=== PATIENT | male | born 1950 | race Caucasian/White ===

== ENCOUNTER → 2017-07-09 | Outpatient (CLI) | payer MEDICARE, BC ==
[~2017-07-09] MED LIST: LIDOCAINE 1%, 20ML ONE; OMNIPAQUE 300 MG/ML, 10ML VIAL ONE; ROPivacaine/PF 0.2%, 10 ML ONE; TRIAMCINOLONE ACETONIDE 40 MG/ML, 1ML ONE
== END | disposition home or self-care (01) ==
LOC: RAD 08:13
PROVIDERS: ATTEND Nurse Practitioner
DX: M20.11 Hallux valgus (acquired), right foot (principal); M19.071 Primary osteoarthritis, right ankle and foot
CPT/HCPCS: 20605; 77002; J2795; J3301; J3490; Q9967

== ENCOUNTER → 2017-11-12 | Outpatient (CLI) | payer MEDICARE, BC ==
[~2017-11-12] MED LIST changes: -OMNIPAQUE 300 MG/ML, 10ML VIAL ONE; +ROPIvacaine/PF 0.2%, 20 ML ONE; -ROPivacaine/PF 0.2%, 10 ML ONE
== END | disposition home or self-care (01) ==
LOC: CFH 14:04
PROVIDERS: ATTEND Nurse Practitioner
DX: M20.11 Hallux valgus (acquired), right foot (principal); M19.071 Primary osteoarthritis, right ankle and foot
CPT/HCPCS: 20600; 20610; 77002; J2795; J3301; J3490; 20605

== ENCOUNTER → 2018-03-17 | Outpatient (CLI) | payer MEDICARE, BC ==
[~2018-03-17] MED LIST changes: +BUPIVACAINE/PF 0.5% ONE; -LIDOCAINE 1%, 20ML ONE; +LIDOCAINE-MPF 1%, 2ML ONE; +OMNIPAQUE 300 MG/ML, 10ML VIAL ONE; -ROPIvacaine/PF 0.2%, 20 ML ONE
== END | disposition home or self-care (01) ==
LOC: RAD 08:58
PROVIDERS: ATTEND Nurse Practitioner
DX: M19.071 Primary osteoarthritis, right ankle and foot (principal); Z79.899 Other long term (current) drug therapy
CPT/HCPCS: 27648; 77002; J3301; J3490; Q9967

== ENCOUNTER 2018-08-14 08:35 | Outpatient (CLI) | payer MEDICARE, BC ==
[2018-08-14] MEDS ORDERED: ROPivacaine/PF 0.2%, 10 ML ONE (08:36)
[2018-08-14] MEDS ORDERED: LIDOCAINE-MPF 1%, 5ML ONE (08:37)
[2018-08-14] MEDS ORDERED: BUPIVACAINE/PF 0.5% ONE (08:37)
[2018-08-14] MEDS ORDERED: TRIAMCINOLONE ACETONIDE 40 MG/ML, 1ML ONE (08:38)
[2018-08-14] MEDS ORDERED: OMNIPAQUE 300 MG/ML, 10ML VIAL ONE (09:00)
== END 2018-08-14 23:59 | disposition home or self-care (01) ==
LOC: RAD 08:35
PROVIDERS: ATTEND Nurse Practitioner
DX: M19.071 Primary osteoarthritis, right ankle and foot (principal)
CPT/HCPCS: 20605; 77002; J2795; J3301; J3490; Q9967

== ENCOUNTER → 2018-12-08 | Outpatient (CLI) | payer MEDICARE, BC ==
[~2018-12-08] MED LIST changes: -BUPIVACAINE/PF 0.5% ONE; -LIDOCAINE-MPF 1%, 2ML ONE; +LIDOCAINE-MPF 1%, 5ML ONE; -OMNIPAQUE 300 MG/ML, 10ML VIAL ONE; +ROPivacaine/PF 0.2%, 10 ML ONE
== END | disposition home or self-care (01) ==
LOC: CFH 08:24
PROVIDERS: ATTEND Nurse Practitioner
DX: M20.11 Hallux valgus (acquired), right foot (principal); M25.571 Pain in right ankle and joints of right foot; M19.071 Primary osteoarthritis, right ankle and foot
CPT/HCPCS: 20600; 77002; J2795; J3301

== ENCOUNTER 2019-03-05 08:44 | Outpatient (CLI) | payer MEDICARE, BC ==
[2019-03-05] MEDS ORDERED: TRIAMCINOLONE ACETONIDE 40 MG/ML, 1ML ONE (08:57)
[2019-03-05] MEDS ORDERED: LIDOCAINE-MPF 1%, 5ML ONE (08:57)
[2019-03-05] MEDS ORDERED: ROPivacaine/PF 0.2%, 10 ML ONE (08:57)
== END 2019-03-05 23:59 | disposition home or self-care (01) ==
LOC: RAD 08:44
PROVIDERS: ATTEND Nurse Practitioner
DX: M20.11 Hallux valgus (acquired), right foot (principal)
CPT/HCPCS: 20600; 77002; J2795; J3301

== ENCOUNTER 2019-05-19 09:03 | Outpatient (CLI) | payer MEDICARE, BC ==
[2019-05-19] MEDS ORDERED: LIDOCAINE-MPF 1%, 5ML ONE (09:11)
[2019-05-19] MEDS ORDERED: ROPivacaine/PF 0.2%, 10 ML ONE ×2 (09:11)
[2019-05-19] MEDS ORDERED: TRIAMCINOLONE ACETONIDE 40 MG/ML, 1ML ONE (09:12)
== END 2019-05-19 23:59 | disposition home or self-care (01) ==
LOC: RAD 09:03
PROVIDERS: ATTEND Nurse Practitioner
DX: M21.071 Valgus deformity, not elsewhere classified, right ankle (principal); M72.2 Plantar fascial fibromatosis
CPT/HCPCS: 20600; 77002; J2795; J3301

== ENCOUNTER 2019-08-20 08:31 | Outpatient (CLI) | payer MEDICARE, BC ==
[2019-08-20] MEDS ORDERED: ROPivacaine/PF 0.2%, 10 ML ONE (09:00)
[2019-08-20] MEDS ORDERED: LIDOCAINE-MPF 1%, 5ML ONE (09:00)
[2019-08-20] MEDS ORDERED: TRIAMCINOLONE ACETONIDE 40 MG/ML, 1ML ONE (09:00)
== END 2019-08-20 23:59 | disposition home or self-care (01) ==
LOC: RAD 08:31
PROVIDERS: ATTEND Nurse Practitioner
DX: M79.671 Pain in right foot (principal)
CPT/HCPCS: 20605; 77002; J2795; J3301

== ENCOUNTER 2020-02-02 08:44 | Outpatient (CLI) | payer MEDICARE, BC ==
[2020-02-02] MEDS ORDERED: TRIAMCINOLONE ACETONIDE 40 MG/ML, 1ML ONE ×2 (08:57→09:18)
[2020-02-02] MEDS ORDERED: LIDOCAINE-MPF 1%, 5ML ONE ×2 (10:45→13:00)
[2020-02-02] MEDS ORDERED: OMNIPAQUE 300 MG/ML, 10ML VIAL ONE (11:37)
== END 2020-02-02 23:59 | disposition home or self-care (01) ==
LOC: RAD 08:44
PROVIDERS: ATTEND Nurse Practitioner
DX: M20.11 Hallux valgus (acquired), right foot (principal); M72.2 Plantar fascial fibromatosis; M25.571 Pain in right ankle and joints of right foot
CPT/HCPCS: 20600; 77002; J3301; Q9967